=== PATIENT | female | born 1960 | race Asian ===

== ENCOUNTER 2020-09-26 09:22 | Day surgery (SDC) | payer OTHER ==
[2020-09-19 13:19] VITALS: BMI 21.1
[2020-09-26] MEDS ORDERED: MIDAZOLAM HCL 2 MG/2 ML SINGLE DOSE VIAL ONE (11:10)
[2020-09-26 12:34] VITALS: TEMP 97.8
[2020-09-26 12:56] VITALS: BP 125/68; PULSE 79
== END 2020-09-26 12:58 | disposition home or self-care (01) ==
LOC: FASU 09:22
PROVIDERS: ATTEND Orthopaedic Surgery Hand Surgery
PROC: 0LN80ZZ Release Left Hand Tendon, Open Approach (ICD-10-PCS; principal; 2020-09-26 12:10)
DX: M65.332 Trigger finger, left middle finger (principal)
CPT/HCPCS: 82962